=== PATIENT | female | born 1990 | race Caucasian/White ===

== ENCOUNTER 2023-08-18 19:23 | Emergency (ER) | payer SELFPAY ==
[~2023-08-18] VITALS: Ht 162.6 cm; Wt 77.1 kg
[2023-08-18 19:51] VITALS: BP 113/69; PULSE 61; RESP 16; TEMP 97.6; O2SAT 100
[2023-08-18 20:20] VITALS: O2SAT 100
[2023-08-18 20:41] LABS: APPEARANCE,URINE CLEAR (CLEAR); BILIRUBIN,URINE NEGATIVE (NEGATIVE); BLOOD, URINE 3+ (NEGATIVE); COLOR,URINE YELLOW (YELLOW); LEUKOCYTE ESTERASE ,URINE 3+ (NEGATIVE); NITRITE, URINE NEGATIVE (NEGATIVE); PROTEIN,URINE TRACE (NEGATIVE); UGLUCOSE NEGATIVE (NEGATIVE); UROBILINOGEN,URINE 0.2 EU/dL (0.2 - 1)
[2023-08-18 21:00] LABS: BACTERIA,URINE 10-30 (MOD) /HPF (None Seen); MUCUS,URINE None Seen /LPF (None Seen); RBC,URINE 11-20 (MOD) /HPF (0-5); SQUAMOUS EPITHELIAL CELL,UR 0-3 (FEW) /LPF (0-3 (FEW)); TRICHOMONAS,URINE None Seen /HPF (None Seen); WBC,URINE 16-25 (MOD) /HPF (0-5); WHITE BLOOD CELL CASTS,URINE None Seen /LPF (None Seen); YEAST,URINE None Seen /HPF (None Seen)
[2023-08-18] MEDS ORDERED: CEPH-588 PO (21:17)
[2023-08-18] MEDS ORDERED: PYR100 PO (21:17)
[2023-08-18] MEDS: cephALEXin 500 MG CAP PO ONE (21:21)
== END 2023-08-18 21:22 | disposition home or self-care (01) ==
LOC: MED 19:23
DX: N39.0 Urinary tract infection, site not specified (principal); Z79.899 Other long term (current) drug therapy
CPT/HCPCS: 81001; 81025; 87086; 99283